=== PATIENT | female | born 1950 | race Caucasian/White ===

== ENCOUNTER 2016-10-10 07:02 | Day surgery (SDC) | payer OTHER ==
[2016-10-08 14:43] VITALS: BMI 23.2
[2016-10-10] MEDS ORDERED: PROPOFOL 20 ML ONE ×3 (08:20→09:24)
[2016-10-10] MEDS ORDERED: LIDOCAINE HCL 2% (20ML MULTI-DOSE VIAL) NR ONE (08:23)
[2016-10-10] MEDS ORDERED: ROPIVACAINE HCL 0.5% 30ML VIAL ONE (08:26)
[2016-10-10] MEDS ORDERED: MIDAZOLAM HCL 2 MG/2 ML SINGLE DOSE VIAL ONE ×3 (08:26→09:24)
--- NOTE | 2016-10-10 08:38 | HP ---
Satellite H - Chief Complaint Chief Complaint: right shoulder pain - Past Medical History Allergies/Adverse Reactions: Allergies Allergy/AdvReac Type Severity Reaction Status Date / Time Sulfa (Sulfonamide Allergy Intermediate Nausea Verified 10/10/16 07:37 Antibiotics) - Current Medications Current Medications: Medication Instructions Recorded Alprazolam [Xanax] 0.25 mg PO Q8H 08/26/15 Cholecalciferol (Vitamin D3) 2,000 unit PO DAILY 08/26/15 [Vitamin D] Gabapentin 600 mg PO DAILY capsule 12/02/15 Acetaminophen [Tylenol 1,000 mg PO Q6H PRN MDD SHOULDER 10/08/16 .Extra-Strength -] Famotidine 20 mg PO BID 10/08/16 Psyllium Husk [Metamucil] 660 gm PO DAILY 10/08/16 Tretinoin [Retin-A] 20 gm TP DAILY 10/08/16 Hydrocodone/Acetaminophen 1 each PO Q6H #40 tablet MDD 4 10/10/16 [Hydrocodon-Acetaminoph 7.5-325] Satellite Physical Exam - Physical Examination Vital Signs: Vital Signs Period Temp Pulse Resp BP Sys/Jimenez Pulse Ox Last 24 Hr 97.4 F 76 18 120/66 99 General Appearance: Well Nourished, Well Developed, Alert & Oriented x3 ENT: Clear Lung: Normal air movement Heart: Regular rate & rhythm Extremities: Other (right shoulder- + ttp, decr rom, + neer, + boucher, nvi MRi + labal tear) Neurological: Intact, Alert, Oriented Satellite Impression/Plan - Impression/Plan Impression: right shoulder impingement, labral tear Operative Procedure: right shoulder arthroscopy with SAD possible labral tear Date to be Performed: 10/10/16
[2016-10-10] MEDS ORDERED: oxyCODONE HCL 5 MG TABLET PO PRN (09:10)
[2016-10-10] MEDS ORDERED: PROMETHAZINE HCL 25 MG/1 ML VIAL IVPUSH PRN (09:10)
[2016-10-10] MEDS ORDERED: ONDANSETRON 4 MG/2 ML VIAL IVPUSH PRN (09:10)
[2016-10-10] MEDS ORDERED: LACTATED RINGERS SOLUTION 1,000 ML IV SCH (09:15)
[2016-10-10] MEDS ORDERED: SODIUM CHLORIDE 0.9% P/F 10 ML VIAL IJ ONE (09:24)
[2016-10-10] MEDS ORDERED: ROCURONIUM BROMIDE 50 MG/5 ML VIAL ONE (09:24)
[2016-10-10] MEDS ORDERED: DEXAMETHASONE SOD PHOSPHATE 4 MG/1 ML VIAL ONE (09:24)
[2016-10-10] MEDS ORDERED: ceFAZolin SODIUM 1 GM VIAL ONE (09:24)
[2016-10-10] MEDS ORDERED: KETOROLAC TROMETHAMINE 30 MG/1 ML VIAL ONE (09:24)
[2016-10-10] MEDS ORDERED: ceFAZolin SODIUM 1 GM VIAL IVPB ONE (09:46)
--- NOTE | 2016-10-10 11:01 | OP ---
Operative Note - Note: Operative Date: 10/10/16 Pre-Operative Diagnosis: right shoulder impingement, labral tear/SLAP lesion, ACJ OA Operation: right shoulder arthroscopy, subacromial decompression, distal clavicle excision, extensive debridement, removal loose bodies, Labral repair Implants: 2 x Arthrex Push Lock anchors Surgeon: Jay Mary Supervisor [employer] Dietary Service: Juancarlos Morse Anesthesiologist/GERIATRIC PERSONAL CARE AIDE: Paul Jones Jr. Anesthesia: General, Local Specimens Removed: shavings, loose bodies Estimated Blood Loss (mls): 0 Blood Volume Replaced (mls): 0 Fluid Volume Replaced (mls): 700 Operative Report Dictated: Yes
[2016-10-10 12:38] VITALS: TEMP 97.8
[2016-10-10 14:40] VITALS: BP 131/65; PULSE 90
--- NOTE | 2016-10-11 09:03 | OP ---
DATE OF OPERATION: 10/10/2016 PREOPERATIVE DIAGNOSIS: Right shoulder impingement syndrome, acromioclavicular joint arthritis, and labral tear. POSTOPERATIVE DIAGNOSIS: Right shoulder impingement syndrome, acromioclavicular joint arthritis, and labral tear. PROCEDURE: Right shoulder arthroscopy, subacromial decompression, distal clavicle excision, arthroscopic labral repair, and removal of loose bodies. SURGEON: Antoinette Huerta MD WEB SITE ADMINISTRATOR: DOREEN Gentile CIRCLE EDGER: Paul Jones CRNA ANESTHESIA: Right interscalene block and LMA anesthesia. DRAINS: None. COMPLICATIONS: None. BLOOD LOSS: Minimal. BLOOD GIVEN: None. FLUID REPLACEMENT: 700 mL. DESCRIPTION OF PROCEDURE: This patient is a 65-year-old female with a preoperative diagnosis of a right shoulder subacromial impingement, AC joint arthritis, and labral tear. After understanding the potential risks, complications, alternatives, and benefits of the surgery vs. non-surgical treatment, the patient elected to undergo this procedure. The patient was brought to the operating room, peripheral IV placed, and IV sedation was given. One gram of IV Ancef was given. LMA anesthesia was induced after right interscalene block was performed. She was placed in the beach-chair position with ample padding throughout. The right upper extremity was prepped and draped in sterile fashion. The bony landmarks were marked out with a marking pen. Posterior portal was established. A diagnostic glenohumeral arthroscopy was performed. Patient was seen to have an anterior SLAP lesion. 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 There were a lot of loose bodies, which were likely articular cartilage. The undersurface of the rotator cuff looked good. Two anterior portals were established under direct visualization. Green cannulas were introduced into the joint. Probe was used to probe the labral tear confirming the labral tear, and a shaver was introduced into the joint to remove all the loose bodies, debride the cartilage, debride the frayed aspects of the labrum. Next, in a standard fashion, after the scooby was used and the rasp, 2 FiberWire/FiberSticks were used and 2 Arthrex push-lock anchors to do the anterior SLAP lesion repair. It came down quite nicely. Prior to that, there was a very wide drive-through sign. There seemed to be anterior instability of the humeral head in the glenohumeral joint, and therefore additional anterior capsule was captured as well to close down the capsule to afford anterior stability. It all came together quite nicely and eliminated the drive-through sign. I probed the labrum, and the repair was quite good. Next, out attention was turned to the subacromial space. The lateral portal was established under direct visualization. The patient had a tremendous amount of inflammatory bursitis. Patient had a large type 2 subacromial spur and a very large subclavicular spur. A 5.5-mm oval bur was used to do a bony subacromial decompression and distal clavicle excision. A shaver was then used to fine tune this and remove all debris. The rotator cuff was then directly visualized and from the top surface, there was no rotator cuff tear. The knee was copiously irrigated and washed out. All instrumentation removed. All saline removed. Arthroscopy portals were closed with 3-0 nylon suture. It was then covered with Aquacel, and put into a shoulder immobilizer. Patient was extubated. There were no complications during the case. Total operative time was about 40 minutes, and patient was brought to the ambulatory recovery room in stable condition. ANTOINETTE HUERTA M.D. [id number]
--- NOTE | 2016-10-12 14:11 | PATH ---
Surgical Pathology Report Patient Name: KEEGAN AMIN [facility]. Rec. #: [id number] /Age/Gender: 1950 (Age: 65) / F Account: [id number] Location: [facility] SURGICAL Taken: 10/10/2016 Received: 10/11/2016 Reported: 10/12/2016 Physicians: Jay Mary M.D. Specimen(s) Received SHAVINGS RIGHT SHOULDER Clinical History Right shoulder impingement labral tear Final Diagnosis SOFT TISSUE, RIGHT SHOULDER, ARTHROSCOPIC SHAVINGS: SYNOVIUM AND FIBROCARTILAGE WITH MYXOHYALINE DEGENERATION. FRAGMENTS OF UNREMARKABLE BONE AND SKELETAL MUSCLE. Electronically Signed Bj Marks M.D. Gross Description Received in formalin, labeled "right shoulder shavings" is a 4.0 x 3.5 x 0.4 cm aggregate of klein-yellow soft tissue fragments. A technical account representative portion is submitted in one cassette. /10/11/2016 saudi10/11/2016
== END 2016-10-10 13:35 | disposition home or self-care (01) ==
LOC: JASU-SURG 07:02
PROVIDERS: ATTEND Orthopaedic Surgery
PROC: 0PB94ZZ Excision of Right Clavicle, Percutaneous Endoscopic Approach (ICD-10-PCS; 2016-10-10)
PROC: 0MM14ZZ Reattachment of Right Shoulder Bursa and Ligament, Percutaneous Endoscopic Approach (ICD-10-PCS; 2016-10-10)
PROC: 0RBJ4ZZ Excision of Right Shoulder Joint, Percutaneous Endoscopic Approach (ICD-10-PCS; principal; 2016-10-10 09:00)
DX: M75.41 Impingement syndrome of right shoulder (principal); S43.431A Superior glenoid labrum lesion of right shoulder, initial encounter; X58.XXXA Exposure to other specified factors, initial encounter; Y93.9 Activity, unspecified; Y92.9 Unspecified place or not applicable; Y99.9 Unspecified external cause status; M19.011 Primary osteoarthritis, right shoulder
CPT/HCPCS: 88304-TC; 94760

== ENCOUNTER 2021-10-04 07:23 | Day surgery (SDC) | payer OTHER ==
[2021-09-29 17:44] VITALS: BMI 25.2
[2021-10-04] MEDS: PHENYLEPHRINE 2.5% OPHTH SOLN 15 ML BOTTLE ONE ×3 (08:15→08:25)
[2021-10-04] MEDS: TROPICAMIDE 1% OPHTH SOLN 15 ML BOTTLE ONE ×3 (08:15→08:25)
[2021-10-04] MEDS: CYCLOPENTOLATE 2% OPHTH SOLN 2 ML BOTTLE ONE ×3 (08:15→08:25)
[2021-10-04] MEDS: CIPROFLOXACIN 0.3% EYE DROPS 5 ML BOTTLE ONE ×3 (08:15→08:25)
[2021-10-04] MEDS ORDERED: LIDOCAINE 1% P/F 10 MG/ML VIAL ONE (09:27)
[2021-10-04] MEDS ORDERED: NEO/POLYMYX B SULF/DEXAMETH OPHTHALMIC 5ML BOTTLE ONE (09:28)
[2021-10-04] MEDS ORDERED: BSS (NA/CA/MG/K) BALANCED SALT SOLUTION OPHTH SOLN 15 ML BOTTLE ONE (09:28)
[2021-10-04] MEDS ORDERED: TETRACAINE 0.5% OPHTH SOLN 2 ML BOTTLE ONE (09:28)
[2021-10-04] MEDS ORDERED: CARBACHOL 0.01% INTRA-OCULAR 1.5 ML VIAL ONE (09:28)
[2021-10-04] MEDS ORDERED: MIDAZOLAM HCL 2 MG/2 ML SINGLE DOSE VIAL ONE (09:50)
[2021-10-04] MEDS ORDERED: ACETAMINOPHEN 325 MG TABLET (FP) ONE (10:23)
[2021-10-04 10:33] VITALS: PULSE 74; TEMP 98.2
[2021-10-04 11:05] VITALS: BP 127/68
== END 2021-10-04 11:05 | disposition home or self-care (01) ==
LOC: FASU 07:23
PROVIDERS: ATTEND Ophthalmology
PROC: 08RJ3JZ Replacement of Right Lens with Synthetic Substitute, Percutaneous Approach (ICD-10-PCS; principal; 2021-10-04 09:55)
DX: H26.8 Other specified cataract (principal)

== ENCOUNTER 2021-10-25 08:25 | Day surgery (SDC) | payer OTHER ==
[2021-10-19 13:48] VITALS: BMI 25.2
[2021-10-25] MEDS ORDERED: TETRACAINE 0.5% OPHTH SOLN 2 ML BOTTLE ONE (09:28)
[2021-10-25] MEDS ORDERED: CARBACHOL 0.01% INTRA-OCULAR 1.5 ML VIAL ONE (09:28)
[2021-10-25] MEDS ORDERED: NEO/POLYMYX B SULF/DEXAMETH OPHTHALMIC 5ML BOTTLE ONE (09:28)
[2021-10-25] MEDS ORDERED: BSS (NA/CA/MG/K) BALANCED SALT SOLUTION OPHTH SOLN 15 ML BOTTLE ONE (09:28)
[2021-10-25] MEDS ORDERED: LIDOCAINE 1% P/F 10 MG/ML VIAL ONE (09:28)
[2021-10-25] MEDS: TROPICAMIDE 1% OPHTH SOLN 15 ML BOTTLE ONE ×3 (09:30→09:40)
[2021-10-25] MEDS: CYCLOPENTOLATE 2% OPHTH SOLN 2 ML BOTTLE ONE ×3 (09:30→09:40)
[2021-10-25] MEDS: PHENYLEPHRINE 2.5% OPHTH SOLN 15 ML BOTTLE ONE ×3 (09:30→09:40)
[2021-10-25] MEDS: CIPROFLOXACIN 0.3% EYE DROPS 5 ML BOTTLE ONE ×3 (09:30→09:40)
[2021-10-25] MEDS ORDERED: MIDAZOLAM HCL 2 MG/2 ML SINGLE DOSE VIAL ONE (09:47)
[2021-10-25 11:15] VITALS: TEMP 97.9
[2021-10-25 13:10] VITALS: BP 145/72; PULSE 88
== END 2021-10-25 12:00 | disposition home or self-care (01) ==
LOC: FASU 08:25
PROVIDERS: ATTEND Ophthalmology
PROC: 08RK3JZ Replacement of Left Lens with Synthetic Substitute, Percutaneous Approach (ICD-10-PCS; principal; 2021-10-25 10:21)
DX: H26.8 Other specified cataract (principal)